=== PATIENT | female | born 1940 | race Caucasian/White ===

== ENCOUNTER 2024-12-06 14:15 | Inpatient (IN) | payer MEDICARE, SELFPAY ==
[2024-12-06] VITALS (8 sets, daily range): BP systolic 124–180; BP diastolic 64–75; PULSE 70–102; RESP 15–19; TEMP 36.7; O2SAT 96–98; BMI 32.9; BMI 32.6
--- NOTE | ~2024-12-06 | CT_ITS ---
CLINICAL HISTORY: Stroke Protocol CT head without contrast Comparison: None Findings: No acute hemorrhage. No extra-axial fluid collection. Prominence of the ventricles and extra-axial spaces due to atrophy of the brain parenchyma. No hydrocephalus, mass-effect or herniation. Patel-white differentiation is maintained. There is patchy hypoattenuation of the periventricular and deep white matter, which is most likely the sequela of moderate chronic small vessel ischemic disease. No acute orbital pathology. No acute soft tissue abnormality. No fracture. Complete opacification of the right maxillary sinus with osseous thickening and widening of the ostium may indicate a polyp, likely chronic. Retention cyst/polyp in the left maxillary sinus. Mucosal thickening in right anterior ethmoid air cells. Mild mucosal thickening with a trace amount of secretions in the right sphenoid sinus. The other visualized paranasal sinuses are predominantly clear. The mastoid air cells are clear. Impression: No acute intracranial findings. This document has been electronically signed by: Raquel Pascal MD on 12/06/2024 14:39:50
--- NOTE | ~2024-12-06 | MR_ITS ---
CLINICAL HISTORY: <OBR.31.1><OBR.31.1.1>?TIA vs CVA Pt presents with slurred speech </OBR.31.1.1><OB R.31.1.2> instability while walking </OBR.31.1.2><OBR.31.1.3> standing.</OBR.31.1.3></OBR.31.1> MR Brain without gadolinium Comparison: 12/06/2024 Findings: Multifocal right parietal punctate restricted diffusion. No intracranial mass or hemorrhage. No midline shift. No hydrocephalus. Vascular flow voids are intact. The orbits are normal. There is mucoperiosteal thickening in the right maxillary antrum with possible inspissated mucus. There is inspissated mucus in the left maxillary antrum. The mastoid air cells are clear. No focal bone lesion. IMPRESSION: Multifocal acute right parietal ischemia. This document has been electronically signed by: Adarsh Luevano MD on 12/07/2024 12:35:38
--- NOTE | ~2024-12-06 | CT_ITS ---
CLINICAL HISTORY: Stroke CTA of the head and neck with 3-D postprocessing Comparison: CT/SR - CT HEAD FOR STROKE - 12/06/24 14:23 EST Findings: Significant stenosis of the origin of the right internal carotid artery, 63%. Significant stenosis at proximal left internal carotid artery, measuring up to 54%. Retropharyngeal course of the carotid arteries. Intact vertebral arteries. The vertebral basilar system is patent. The cerebellar and posterior cerebral arteries are intact. The P1 segment of the left posterior cerebral artery is hypoplastic and the P2 segment is partially fed via the posterior communicating artery, a normal variant The intracranial internal carotid arteries are patent. There is severe calcified atherosclerotic disease of the carotid siphons bilaterally The middle/anterior cerebral arteries are intact. No aneurysm or abrupt cutoffs. No mass, midline shift, hydrocephalus, acute hemorrhage or abnormal contrast enhancement. The lung apices are clear. The soft tissues of the head and neck are unremarkable. Impression: Significant stenosis of the right internal carotid artery, 63%. Significant stenosis of the left internal carotid artery, 54%. No aneurysm or occlusion. This document has been electronically signed by: Raquel Pascal MD on 12/06/2024 16:34:08
--- NOTE | 2024-12-06 14:23 | ECG_ITS ---
Test Reason : STROKE Blood Pressure : */* mmHG Vent. Rate : 95 BPM Atrial Rate : 95 BPM P-R Int : 156 ms QRS Dur : 68 ms QT Int : 336 ms P-R-T Axes : 71 28 46 degrees QTcB Int : 422 ms Sinus rhythm with occasional Premature ventricular complexes Nonspecific ST abnormality Abnormal ECG No previous ECGs available Referred By: Bryan Pierce Electronically Signed By: AMISHA YOU
[2024-12-06 14:27] LABS: Glucose, Whole Blood 150 mg/dL (60-115)
[2024-12-06 14:45] LABS: Prothrombin Time Whole Bld POC 12.1 sec (11.1-13.5)
[2024-12-06 14:55] LABS: MANUAL DIFF FLAG NO
[2024-12-06 14:56] LABS: Basophils Percent Auto 0.5 % (0-2); Eosinophils Absolute Auto 0.1 X10*3/uL (0.0-0.4); Eosinophils Percent Auto 1.3 % (0-4); Hematocrit 37.9 % (37.0-47.0); Hemoglobin 12.7 g/dl (12.0-16.0); Imm Gran Abs Auto 0.02 X10*3/uL (0.00-0.03); Imm Gran Pct Auto 0.3 % (0.0-0.4); Lymphocytes Absolute Auto 1.7 X10*3/uL (1.2-4.9); Lymphocytes Percent Auto 20.8 % (20-40); Mean Corpuscular HGB Conc 33.5 g/dl (31.0-35.0); Mean Corpuscular Hemoglobin 30.9 pg (27.0-33.0); Mean Corpuscular Volume 92.2 fL (80.0-98.0); Mean Platelet Volume 8.9 fL (9.4-12.3); Monocytes Absolute Auto 0.4 X10*3/uL (0.1-1.2); Monocytes Percent Auto 4.7 % (2-11); Neutrophils Absolute Auto 5.8 x10*3/uL (2.0-8.3); Neutrophils Percent Auto 72.4 % (45-73); Platelet Count 237 X10*3/uL (160-400); Red Blood Count 4.11 X10*6/uL (4.20-5.50); White Blood Count 7.9 X10*3/uL (4.8-10.8)
[2024-12-06 15:01] LABS: Prothrombin Time 11.3 SEC (10.9-12.4)
[2024-12-06 15:04] LABS: Partial Thromboplastin Time 28.1 SEC (26.0-36.8)
[2024-12-06 15:05] LABS: Stroke Lab Use COMPLETE
[2024-12-06 15:15] LABS: Anion Gap 12 (12-20); Blood Urea Nitrogen 19 mg/dL (9-16); Calcium 8.9 mg/dL (8.4-10.2); Carbon Dioxide 23 mmol/L (22-29); Chloride 110 mmol/L (96-108); Cholesterol 160 mg/dL (<200); Creatinine Clr Calc Pharmacy 64.9; Estimated Glomerular Filt Rate > 60; Glucose Random 135 mg/dL (60-115); HDL Cholesterol 63 mg/dL (>40); LDL Cholesterol Calculated 78 mg/dL (<100); Potassium 3.8 mmol/L (3.3-5.1); Sodium 141 mmol/L (135-145); Triglycerides 95 mg/dL (<150)
[2024-12-06 15:24] LABS: Troponin-I High Sensitivity < 2.7 ng/L (<3.5-17.0)
--- NOTE | 2024-12-06 16:05 | ED_ITS ---
HPI - Neuro Symptoms/Deficit General Chief Complaint: Stroke Stated Complaint: STROKE LIKE, RIGHT SIDED FACE DROOP/SLURRED Time Seen by Provider: 12/06/24 14:24 Source: patient, family and EMS Mode of arrival: EMS Limitations: no limitations History of Present Illness ED Provider: DR. Pierce HPI Narrative: 84-year-old female brought in by ambulance for evaluation of possible stroke. Symptoms started about 2 hours before arrival when noted that the patient been having slurred speech and not making sense when talking, noticed also a right facial droop symptoms started about 2 hours before arrival on arrival to the ED patient is speaking fluently as per daughter that is her normal speech pattern no more slurred speech, and normal neuro exam. Patient is not taking anticoagulation Related Data Allergies Allergy/AdvReac Type Severity Reaction Status Date / Time No Known Allergies Allergy Verified 12/06/24 14:38 Review of Systems 2 Review of Systems: All other systems are reviewed and are negative Constitutional: Reports as per HPI and Reports no additional constitutional complaints Eyes: Reports as per HPI and Reports no additional eye complaints Reports system reviewed and no additional complaints, except as documented Cardiovascular: Reports as per HPI and Reports no additional cardiovascular complaints Respiratory: Reports as per HPI and Reports no additional respiratory complaints Gastrointestinal: Reports as per HPI and Reports no additional gastrointestinal complaints Genitourinary: Reports no additional female genitourinary complaints Musculoskeletal: Reports no additional musculoskeletal complaints Skin/Breast: Reports system reviewed and no additional complaints, except as docu Psychiatric: Reports no additional psychiatric complaints Endocrine: Reports no additional endocrine complaints Hematologic/Lymphatic: Reports no additional hematologic/lymphatic complaints Allergic/Immunologic: Reports no additional allergic/immunologic complaints Reports system reviewed and no additional complaints, except as documented and Reports Abnormal speech present [facility] Social History Social History Advance Directives: No Advance Directives Information Provided: No Do you have a plan to hurt others: No Plan Physical Exam 2 Vital Signs: Vital Signs: Last Vital Signs Temp 98.0 F 12/06/24 15:03 Pulse 87 12/06/24 15:03 Resp 16 12/06/24 15:03 BP 127/65 12/06/24 15:03 Pulse Ox 96 12/06/24 15:03 O2 Del Method Room Air 12/06/24 15:03 BMI result Body Mass Index 32.9 Vital signs have been reviewed and appear to be correct. Blood pressure elevated. Heart rate normal. Respiratory rate normal. Temperature normal. Oxygen saturation normal. Appearance: Alert. Oriented X3. No acute distress. Head: Normal external exam. Normocephalic. Atraumatic. No Burton signs noted. No raccoon eyes noted Eyes: PERRLA. EOMI. Conjunctiva and sclera normal. Eyelids normal. ENT: TM's Normal. Pharynx normal. Uvula midline. Moist mucous membranes. No trismus noted. No drooling noted. No muffled voice noted. Neck: Normal inspection. Neck supple. FROM. No adenopathy. Thyroid Normal. No meningeal signs. No neck mass noted. CVS: Normal heart rate and rhythm. Heart sound normal. No murmurs noted. Pulses normal throughout. Respiratory: No respiratory distress. Painless inspiration. Breath sounds normal. No wheezes/rales/rhonchi noted. Chest nontender. No accessory muscle usage noted or decreased air movement noted. Abdomen: Soft and nontender. Bowel sounds normal in all 4 quadrants. No distention noted. No organomegaly noted. No visible injury noted. Back: No CVA tenderness. Full range of motion noted. Skin: Skin warm and dry. Normal skin color. Normal skin turgor. No rashes/lesions/lacerations noted. Extremities: No lower extremity edema. Extremities exhibit normal range of motion. Extremities nontender. Neuro: Mental status: Normal attention, orientation, memory, and affect. Cranial nerves: Pupils are equal, round and reactive to light, EOMI, visual dent are fall, face is symmetric, facial sensations are normal. Motor examination normal muscle tone, strength to 4 extremities. DTR are +2, planter's are flexor. Sensory exam; normal coordination, no ataxia, gait stable. Cerebellar exam: [id number] and jjwj-[id number]-ivnf is normal. Extrapyramidal system: No tremors, no rigidity with normal facial expressions. Pronator drift not present Course Reevaluation(s) Reevaluation #1: Resolution of patient's neurological deficit, CT head showed no acute intracranial pathology CTA head and neck are still pending signed out to Dr. Schmitz just to follow-up Time: 16:19 Medical Decision Making Differential Diagnosis Differential Diagnoses: The differential diagnosis associated with the presentation includes (Ischemic CVA, hemorrhagic CVA, electrolyte derangement, hypo glycemia, severe anemia.) Admission/Observation Consideration of admission/observation: Escalation of care including admission/observation considered Consult Healthcare Provider Management of the patient was discussed with: Hospitalist (Dr. Knott) Lab Data MDM Lab Attestation statement: I reviewed the patient's lab results. 12/06/24 14:51 12/06/24 14:51 Labs: Lab Results 12/06/24 12/06/24 12/06/24 Range/Units 14:23 14:42 14:51 WBC 7.9 (4.8-10.8) X10*3/uL RBC 4.11 L (4.20-5.50) X10*6/uL Hgb 12.7 (12.0-16.0) g/dl Hct 37.9 (37.0-47.0) % MCV 92.2 (80.0-98.0) fL MCH 30.9 (27.0-33.0) pg MCHC 33.5 (31.0-35.0) g/dl RDW 13.0 (11.0-16.0) % Plt Count 237 (160-400) X10*3/uL MPV 8.9 L (9.4-12.3) fL Immature Gran % (Auto) 0.3 (0.0-0.4) % Neut % (Auto) 72.4 (45-73) % Lymph % (Auto) 20.8 (20-40) % [place] % (Auto) 4.7 (2-11) % Eos % (Auto) 1.3 (0-4) % Baso % (Auto) 0.5 (0-2) % Lymph # (Auto) 1.7 (1.2-4.9) X10*3/uL [place] # (Auto) 0.4 (0.1-1.2) X10*3/uL Eos # (Auto) 0.1 (0.0-0.4) X10*3/uL Baso # (Auto) 0.0 (0.0-0.2) X10*3/uL Abs Immat Gran (auto) 0.02 (0.00-0.03) X10*3/uL Absolute Neuts (auto) 5.8 (2.0-8.3) x10*3/uL Absolute Nucleated RBC 0.000 (0.0-0.012) X10*3/uL Nucleated RBC % (auto) 0.0 (0.0-0.2) /100WBC PT 11.3 (10.9-12.4) SEC Whole Blood PT 12.1 (11.1-13.5) sec INR 1.0 (0.9-1.1) Whole Blood INR 1.0 (0.9-1.1) APTT 28.1 (26.0-36.8) SEC Sodium 141 (135-145) mmol/L Potassium 3.8 (3.3-5.1) mmol/L Chloride 110 H (96-108) mmol/L Carbon Dioxide 23 (22-29) mmol/L Anion Gap 12 (12-20) BUN 19 H (9-16) mg/dL Creatinine 0.83 (0.5-1.4) mg/dL Estim Creat Clear Calc 64.9 Estimated GFR > 60 POC Glucose 150 H (60-115) mg/dL Random Glucose 135 H (60-115) mg/dL Calcium 8.9 (8.4-10.2) mg/dL Troponin I High Sens < 2.7 (<3.5-17.0) ng/L Triglycerides 95 (<150) mg/dL Cholesterol 160 (<200) mg/dL LDL Cholesterol, Calc 78 (<100) mg/dL HDL Cholesterol 63 (>40) mg/dL Independent Interpretation I performed an independent interpretation of an: CT Scan (Head/head and neck CTA: No acute intracranial findings.) Radiology Impression Discussion of test interpretation with radiology: I have reviewed the radiologist's reading. NIH Stroke Scale Internal: Initial- Upon Arrival Level of Consciousness: Alert Level of Consciousness Questions: Answers both questions correctly Level of Consciousness Commands: Performs both tasks correctly Best Gaze: Normal Visual: No visual loss Facial Palsy: Normal Motor Arm (Right): No drift Motor Arm (Left): No drift Motor Leg (Right): No drift Motor Leg (Left): No drift Limb Ataxia: Absent Sensory: Normal Best Language: No aphasia Dysarthia: Normal Extinction and Inattention: No abnormality Score: 0 Discharge Plan Discharge Clinical Impression: Brain TIA Patient Disposition: Admitted As Inpatient Print Language: Kiswahili
[2024-12-06] MEDS: iohexoL 350 MG/ML 100 ML INFUS..BTL IV (16:12)
[2024-12-06] MEDS: Aspirin 325 MG TABLET PO (16:32)
--- NOTE | 2024-12-06 17:26 | PM.IMHP ---
History of Present Illness Date of Service: 12/06/24 Attending physician on admission: Lorene Starkey Chief Complaint: Difficulty speaking Pt is an 84-year-old female with a PMH significant for?HTN, HLD, hypothyroidism, and hx of CVA with residual right eye blindness who presents to the ED for evaluation of sudden onset difficulty speaking and left-sided weakness since this afternoon. Pt reports was in her normal state of health until 14:00 when she noticed that she was having difficulty grasping items with her left hand and found that she was speaking ?gibberish?. Possibly also was experiencing difficulties with depth perception. Family is at bedside and state pt was slurring her words and speaking incoherently which prompted called EMS. Symptoms lasted for approximately 30-60 minutes before improving. Currently pt reports is at or near baseline with left upper extremity, though family notes her speaking is not quite back to baseline. Denies headache, lightheadedness, dizziness. No facial droop noted. Denies difficulty breathing or shortness a breath. No chest pain/pressure, palpitations. Denies fever, chills, nausea, vomiting, abdominal pain. Of note, pt pt and apparently fell at home a few months ago shortly after Thanksgiving. Neither sought medical treatment or evaluation. Since that time pt has been chronically in a wheelchair. Denies any musculoskeletal pain. In the ED pt was hypertensive up to 159/75, vitals otherwise stable. Labs were grossly unremarkable and around baseline for pt. No leukocytosis. Stable H&H. No significant electrolyte abnormalities. Renal function WNL. Lipid panel WNL. Troponin negative. CT?of head negative for acute intracranial abnormalities. CTA of head and neck showed 63% stenosis of right internal carotid artery and 54% stenosis of left internal carotid artery. EKG demonstrated sinus rhythm with PACs. Pt was treated with aspirin. Pt will be admitted to the hospital for treatment and further evaluation of dysarthria and left-sided weakness concerning for TIA versus CVA. Review of Systems Review of Systems: Negative except for that which is stated in the [facility] Medical History (Updated 12/06/24 @ 17:59 by ASIYA Farrell) Hypothyroidism HLD (hyperlipidemia) HTN (hypertension) Blindness of right eye CVA (cerebral vascular accident) Social History Advance Directives: No Advance Directives Information Provided: No Do you have a plan to hurt others: No Plan Meds Allergies Allergy/AdvReac Type Severity Reaction Status Date / Time No Known Allergies Allergy Verified 12/06/24 14:38 Home Medications ?Medication ?Instructions ?Recorded ?Confirmed ?Last Taken ?Type amlodipine 5 mg tablet 5 mg PO DAILY 12/06/24 Unknown History atorvastatin 40 mg tablet 40 mg PO DAILY 12/06/24 Unknown History levothyroxine 112 mcg tablet 112 mcg PO DAILY 12/06/24 Unknown History valsartan 160 mg tablet 160 mg PO BID 12/06/24 Unknown History Physical Exam Vital Signs and Narrative: Vital Signs: Last Vital Signs Temp 98.0 F 12/06/24 15:03 Pulse 92 12/06/24 16:33 Resp 19 12/06/24 16:33 BP 159/75 H 12/06/24 16:33 Pulse Ox 98 12/06/24 16:33 O2 Del Method Room Air 12/06/24 16:33 BMI result Body Mass Index 32.9 Constitutional: Alert, in no acute distress. Mental Status: Oriented to person, place and time. Eyes: Pupils are equal, round, and reactive to light. Ear, Nose, and Throat: Oropharynx clear, mucous membranes moist. Ears and nose without deformities. Trachea midline. Respiratory: Clear to auscultation bilaterally. No wheezing, rales, or rhonchi. Cardiovascular: Regularly irregular rhythm. +murmur. Gastrointestinal: Abdomen soft, non-tender, non-distended. Normal bowel sounds. Neurologic: Cranial nerves II-XII are grossly intact bilaterally. No focal neurological deficits. Moves all extremities spontaneously. Left eyefield appear full. No facial droop. Strength of upper and lower extremities appears intact and symmetric bilaterally. Sensation to light touch intact of face, upper extremities, and lower extremities. Negative pronator drift. Possible slight impairment to fluency of speech. Skin: Warm, dry. Extremities: No edema. Psychiatric: Normal mood and affect. Results Labs 12/06/24 14:51 12/06/24 14:51 Labs: Laboratory Results - last 24 hr 12/06/24 12/06/24 12/06/24 14:23 14:42 14:51 MCV 92.2 MCH 30.9 MCHC 33.5 RDW 13.0 Plt Count 237 MPV 8.9 L Immature Gran % (Auto) 0.3 Neut % (Auto) 72.4 Lymph % (Auto) 20.8 [place] % (Auto) 4.7 Eos % (Auto) 1.3 Baso % (Auto) 0.5 Lymph # (Auto) 1.7 [place] # (Auto) 0.4 Eos # (Auto) 0.1 Baso # (Auto) 0.0 Abs Immat Gran (auto) 0.02 Absolute Neuts (auto) 5.8 Absolute Nucleated RBC 0.000 Nucleated RBC % (auto) 0.0 PT 11.3 Whole Blood PT 12.1 INR 1.0 Whole Blood INR 1.0 APTT 28.1 Anion Gap 12 Estim Creat Clear Calc 64.9 Estimated GFR > 60 POC Glucose 150 H Random Glucose 135 H Calcium 8.9 Troponin I High Sens < 2.7 Triglycerides 95 Cholesterol 160 LDL Cholesterol, Calc 78 HDL Cholesterol 63 Assessment and Plan (1) Dysarthria: Status: Acute Plan Pt is an 84-year-old female with a PMH significant for?HTN, HLD, hypothyroidism, and hx of CVA with residual right eye blindness who presents to the ED for evaluation of sudden onset difficulty speaking and left-sided weakness since this afternoon. Pt will be admitted to the hospital for treatment and further evaluation of dysarthria and left-sided weakness concerning for TIA versus CVA. Dysarthria Pt noted by family to be slurring words, speaking nonsensically for 30-60 minutes this afternoon Pt reports difficulty grasping objects with left hand, poor depth perception Family report pt's speech still not fully back to baseline CT of head negative for acute intracranial abnormality CTA of head neck showing significant internal carotid artery stenosis bilaterally Concerning for TIA versus CVA Will get MRI of head/brain Echocardiogram with bubble study Continue statin Will start on aspirin 81 mg daily Lipid profile WNL PT/OT and speech evaluation Neurology consult Monitor on telemetry Generalized weakness Pt has been wheelchair-bound since fall at home around Thanksgiving Has not sought evaluation or treatment for incident Currently denies any acute musculoskeletal pain PT/OT evaluation as above HTN Hold amlodipine, valsartan for now to allow for permissive hypertension Hypothyroidism Continue levothyroxine Full Code Attending:?Dr. Starkey DVT Prophylaxis: Lovenox Pt will require a hospitalization of at least two nights for treatment of dysarthria and left-sided weakness concerning for TIA versus CVA. Pt will require hospital level care for close cardiac monitoring, additional workup including MRI and echocardiogram, and PT/OT and speech evaluation. Quality Stroke Does the patient have a stroke diagnosis?: No Reason for No Anti-thrombotic by Day Two: Contraindicated (Pt's symptoms significantly improved, near to baseline) VTE Prior VTE?: No VTE Risk Level:: Medical - moderate - high VTE Device Contraindication: Treatment Not Indicated VTE Drug Contraindication: N/A - Med Ordered
[2024-12-06 18:15] LABS: Estimated Average Glucose 114 mg/dL; Hemoglobin A1C 125.4988 umol/L; Hemoglobin A1c % 5.6 % (<6.0); Total Hemoglobin (HGBA1C) 3348.0669 umol/L
[2024-12-06] MEDS: Enoxaparin Sodium 40 MG/0.4 ML SYRINGE SUBCUT (18:35)
--- NOTE | 2024-12-06 18:38 | PHA.MEDREC ---
Pharmacy Consult ? Medication Reconciliation Pharmacy has completed the medication reconciliation.
[2024-12-06] MEDS: Atorvastatin Calcium 40 MG TABLET PO (21:14)
[2024-12-06 21:32] LABS: Glucose, Whole Blood 117 mg/dL (60-115)
[2024-12-06] MEDS: 0.9 % Sodium Chloride Flush 3 ML SYRINGE IVFLUSH (23:15)
[2024-12-07 03:41] VITALS: BP 124/60; PULSE 62; RESP 16; TEMP 36.2; O2SAT 96
[2024-12-07] MEDS: Levothyroxine Sodium 112 MCG TABLET PO (05:11)
[2024-12-07 07:44] VITALS: BP 137/64; PULSE 69; RESP 18; TEMP 36.6; O2SAT 97
[2024-12-07] MEDS: Atorvastatin Calcium 40 MG TABLET PO (07:59)
[2024-12-07] MEDS: Multivitamin TABLET 1 TAB PO (07:59)
[2024-12-07] MEDS: Aspirin Enteric Coated 81 MG TABLET.DR PO (07:59)
[2024-12-07] MEDS: 0.9 % Sodium Chloride Flush 3 ML SYRINGE IVFLUSH ×2 (08:00→16:43)
[2024-12-07 11:30] VITALS: BP 127/58; PULSE 68; RESP 18; TEMP 36.4; O2SAT 100
--- NOTE | 2024-12-07 11:48 | MHC.CM.PN ---
PT REPORTS SHE LIVES WITH HER AND HAS A [employer]ET[employer] SCIENTIST THAT COMES IN Q 2 WEEKS SHE IS USES A WHEEL CHAIR FOR MOBILITY AND CAN TRANSFER INDEPENDENTLY, SHE ALSO HAS A TOILET RISER AND TUB [employer] FOR DME PT STATES SHE HAS A HCP, COPY REQUESTED PCP: BRENDA PALMER IMM DELIVERED DCP: TBD PENDING PT AND OT EVALS HOME WITH RESUMPTION OF SERVICES VS WITH NEW [facility] TO TRANSPORT PT STATES SHE HAS HAD [facility] IN THE PAST AND THAT WOULD BE HER PREFERRED AGENCY REFERRAL PALCED
--- NOTE | 2024-12-07 12:54 | PC.NURSE ---
MRI results available , DR Starkey notified
[2024-12-07 14:54] VITALS: BP 131/59; PULSE 68; RESP 18; TEMP 36.4; O2SAT 98
--- NOTE | 2024-12-07 16:09 | P.PNIM_ITS ---
Subjective Subjective Date of Service: 12/07/24 Interval History: L hand still a little weak feels her speech has improved no swallowing difficulty Review of Systems Review of Systems: Yes all other systems are reviewed and are negative Physical Exam 2 Vital Signs: Vital Signs: Last Vital Signs Temp 97.6 F 12/07/24 14:54 Pulse 68 12/07/24 14:54 Resp 18 12/07/24 14:54 BP 131/59 L 12/07/24 14:54 Pulse Ox 98 12/07/24 14:54 O2 Del Method Room Air 12/07/24 14:54 BMI result Body Mass Index 32.6 Gen: in no acute distress HEENT: sclera anicteric, moist mucus membranes Neck: supple Lungs: clear to auscultation bilaterally Heart: regular rate and rhythm, no murmurs Abd: soft, non-tender, non-distended Ext: no edema Skin: warm/well-perfused Neuro: alert and oriented x3, slightly weak L hand facilitator, very mild speech difficulty Psych: appropriate affect Objective Data Active Medications Acetaminophen (Acetaminophen 325 Mg Tablet) 650 mg PO Q6H PRN PRN Reason: Pain, Mild 1-3,fever,headache Aspirin (Aspirin Enteric Coated 81 Mg Tablet.) 81 mg PO DAILY [facility] Last Admin: 12/07/24 07:59 Dose: 81 mg Documented By: SOCORRO Atorvastatin Calcium (Atorvastatin Calcium 40 Mg Tablet) 40 mg PO DAILY [facility] Last Admin: 12/07/24 07:59 Dose: 40 mg Documented By: SOCORRO Benzonatate (Benzonatate 100 Mg Capsule) 100 mg PO TID PRN PRN Reason: Cough Calcium Carbonate (Calcium Carbonate 750 Mg Tab.Chew) 750 mg PO Q4H PRN PRN Reason: Heartburn Enoxaparin Sodium (Enoxaparin Sodium 40 Mg/0.4 Ml Syringe) 40 mg SUBCUT Q24H [facility] Last Admin: 12/06/24 18:35 Dose: 40 mg Documented By: AILEEN Levothyroxine Sodium (Levothyroxine Sodium 112 Mcg Tablet) 112 mcg PO DAILY@0600 [facility] Last Admin: 12/07/24 05:11 Dose: 112 mcg Documented By: EMI Magnesium Hydroxide (Milk Of Magnesia 30 Ml Oral.Susp) 30 ml PO DAILY PRN PRN Reason: Constipation Melatonin (Melatonin 3 Mg Tablet) 6 mg PO BEDTIME PRN PRN Reason: Insomnia Multivitamins/Vitamin C (Multivitamin Tablet) 1 tab PO DAILY [facility] Last Admin: 12/07/24 07:59 Dose: 1 tab Documented By: SOCORRO Ondansetron HCl (Ondansetron Hcl 4 Mg/2 Ml Vial) 4 mg IVPUSH Q8H PRN PRN Reason: Nausea and Vomiting Sodium Chloride (0.9 % Sodium Chloride Flush 3 Ml Syringe) 3 ml IVFLUSH QSHIFT [facility] Last Admin: 12/07/24 08:00 Dose: 3 ml Documented By: SOCORRO Labs 12/06/24 14:51 12/06/24 14:51 Labs: Laboratory Results - last 24 hr 12/06/24 12/06/24 14:51 21:28 POC Glucose 117 H Estimat Average Glucose 114 Hemoglobin A1c % 5.6 MRI brain 12/07 Multifocal acute right parietal ischemia. Assessment and Plan (1) Acute CVA (cerebrovascular accident): Status: Acute Plan d2 for 84yo F with HTN, HLD, hypothyroidism, hx CVA 15yr ago with R eye blindness presented after sudden-onset dysarthria + LUE weakness acute CVA carotid stenosis - ASA, statin, Neuro consult, TTE, PT, OT, [employer] - continue telemetry montioring; atrial tachycardia identified but this is not a thrombotic risk HTN - hold amlodipine + valsartan to allow permissive hypertension hypothyroidism - continue LT4 VTE prophylaxis - enoxaparin dispo - TBD In my clinical judgment, the patient requires continued inpatient hospitalization for the following reasons: acute CVA Total time managing care of this patient today: 35 minutes. Quality Stroke Does the patient have a stroke diagnosis?: No Reason for No Anti-thrombotic by Day Two: Contraindicated (Pt's symptoms significantly improved, near to baseline) VTE Prior VTE?: No VTE Risk Level:: Medical - moderate - high VTE Device Contraindication: Treatment Not Indicated VTE Drug Contraindication: N/A - Med Ordered
[2024-12-07] MEDS: Enoxaparin Sodium 40 MG/0.4 ML SYRINGE SUBCUT (16:44)
[2024-12-07 20:00] VITALS: BP 103/51; PULSE 70; RESP 20; TEMP 36.8; O2SAT 99
[2024-12-08] VITALS (8 sets, daily range): BP systolic 111–141; BP diastolic 55–68; PULSE 60–75; RESP 16–20; TEMP 36.4–37; O2SAT 95–99
[2024-12-08] MEDS: Levothyroxine Sodium 112 MCG TABLET PO (06:20)
--- NOTE | 2024-12-08 07:00 | CA_ITS ---
Transthoracic Echocardiogram Patient (Last, First, Middle): Marybeth Mckinley A Gender: Female Date of : 1940 Age: 84 Procedure Date: 12/08/2024 Procedure Type: Transthoracic Echocardiogram Location: [facility] [place] Height: 175.26 cm Weight: 99.79 kg BSA: 2.15 m2 Heart Rate: 62 bpm BP: 111 / 55 mmHg Plastic Sheeting Cutter: MIKI Referring MD: Andre BRADEN Symptoms: ?TIA vs CVA Study Quality: Adequate w/Contrast ECG Rhythm: Sinus Conclusions: - Normal left ventricular cavity size. There is mildly increased left ventricular wall thickness. The left ventricular systolic function is hyperdynamic. The visually estimated ejection fraction is >70%. - Normal right ventricular cavity size and systolic function. - There is moderate to severe aortic valve stenosis. DI 0.23. - The aortic valve area is 0.96 cm2. Findings Procedure Information Contrast agent, definity, is being given per protocol without apparent complications. Left Ventricle Normal left ventricular cavity size. There is mildly increased left ventricular wall thickness. The left ventricular systolic function is hyperdynamic. The visually estimated ejection fraction is >70%. There is no evidence of regional wall motion abnormalities. Abnormal diastolic function is noted. Spectral Doppler is indicative of an impaired relaxation filling pattern. E/E prime ratio is between 8 and 15 consistent with indeterminate filling pressures. Right Ventricle Normal right ventricular cavity size and systolic function. Atria The left atrium is normal in size. The right atrium is normal in size. Aortic Valve There is moderate calcification of the aortic valve. There is moderate to severe aortic valve stenosis. The peak aortic velocity is 3.48 m/s with a calculated peak gradient of 48 mmHg. The mean gradient is 29 mmHg. The aortic valve area is 0.96 cm2. There is no aortic valve regurgitation. Mitral Valve Likely normal mitral valve structure and function. There is no mitral valve regurgitation. There is no mitral valve stenosis. Pulmonic Valve The pulmonic valve is likely normal. Tricuspid Valve Normal tricuspid valve structure. There is trace tricuspid valve regurgitation. Normal right atrial pressure. There is no evidence of pulmonary hypertension. Great Vessels All visible segments of the aorta are normal in size. Venous The inferior vena cava is normal in size and collapses greater than 50% with inspiration. Pericardium/Pleural There is no evidence of pericardial effusion. Prior Study Comparison No prior study available for comparison. Measurements 2D Linear Measurements IVSd: 1.08 0.6-0.9/0.6-1.0 cm LVIDd: 3.17 3.9-5.3/4.2-5.9 cm LVIDd Index: 1.47 2.4-3.2/2.2-3.1 cm/m2 LVIDs: 2.16 2.0-3.6 cm LVPWd: 1.14 0.7-1.1 cm LA Diam: 4.00 2.7-3.8/3.0-4.0 cm LAIDs Index: 1.86 1.5-2.3 cm/m2 LV Mass: 129.73 67-162/88-224 g LV Mass Index: 60.34 43-95/49-115 g/m2 LVOT Diam: 1.70 3.0+(-)1.3 cm 2D Systolic Function EF 4C: 71.60 >55% EF 2C: 72.40 >55% EF BiP: 72.40 >55% Mitral Valve MV Pk E: 0.99 MV PK A: 1.25 MV Decel Time: 264.00 E/A: 0.80 E'Lateral: 7.51 E'Medial: 6.09 E/E' Med: 16.20 E/E' Lat: 13.10 PHT: 77.00 MVA PHT: 2.86 Decel [place]: 3.74 Aortic Valve AoV Pk Aime: 3.48 AoV Mn Aime: 2.52 AoV VTI: 0.83 AoV Pk Grad: 48.00 Aov Mn Grad: 29.00 TANISHA Cont.VTI: 0.96 LVOT LVOT Pk Aime: 1.53 LVOT Mn Aime: 1.01 LVOT VTI: 0.35 LVOT Pk Grad: 9.00 LVOT Mn Grad: 5.00 LVOT Diam: 1.70 LVOT Area: 2.27 Diastolic Function MV Pk E: 0.99 MV Pk A: 1.25 E/A: 0.80 E'Medial: 6.09 E/E' Med: 16.20 E' Laterial: 7.51 E/E' Lat: 13.10 Right Ventricle TAPSE (mm): 20.40 TVS' Aime: 9.03 Tricuspid Valve TR Pk Aime: 2.18 TR Pk Grad: 19.00 RA Press: 3.00 RVSP: 22.00 Great Vessels Aorta Sinus of Valsalva: 3.10 2.0-3.5 cm Ao Asc: 3.10 2.1-3.4 cm Pulmonary Valve PV Pk Aime: 1.21 Peak PV Grad: 6.00 Updated in Other Vendor System with Status of Final Wu Chau MD electronically signed on 12/08/2024 6:23:58 PM with status of Final
--- NOTE | 2024-12-08 08:27 | PM.NEUROCN ---
History of Present Illness Data of Consult Service Date: 12/08/24 Primary Care Provider: Selena Farmer MD [facility] Reason for consult: Stroke 84 years old woman, right-handed, came to hospital with new onset of difficulty speaking a left-sided weakness that started about a day before she came to hospital. There was no associated headache nausea or vomiting. Now she was feeling better. There was no chest pain shortness of breath palpitation. There was no recent cold or flu-like illness. She was not mentally confused with it. She has been drinking couple of glasses of wine at night for probably years. Review of Systems Review of Systems: As per HPI [facility] Past Medical History Medical History (Updated 12/07/24 @ 16:10 by Lorene Starkey MD) Hypothyroidism HLD (hyperlipidemia) HTN (hypertension) Blindness of right eye CVA (cerebral vascular accident) Social History Social History Household Members: Spouse Housing: House Do you presently have visiting nurse or other home services: No Patient Tobacco Use Status: Never used Tobacco e-Cigarette/Vaping Use: Never Used Use of substances other than those prescribed or required for medical reasons: No Currently Displaying Signs/Symptoms of Drug Intoxication Withdrawal: No Any prior treatment program specific to substance use: No Have you been hit, kicked, punched, or otherwise hurt by someone within the past year? If so, by whom?: No Do you feel safe in your current relationship?: Yes Is there a partner from a previous relationship who is making you feel unsafe now?: No Are you made to feel afraid or neglected: No Advance Directives: No Advance Directives Information Provided: No Do you have a plan to hurt others: No Plan Recently lost weight without trying: No How much weight loss: Not applicable Eating poorly because of decreased appetite: No Nutrition screen score: 0 Nutrition Risks: No Nutritional Risk Patient : No : No Poor oral hygiene: No service: No Meds Allergies Allergy/AdvReac Type Severity Reaction Status Date / Time No Known Allergies Allergy Verified 12/06/24 14:38 Active Medications: Current Medications Acetaminophen (Acetaminophen 325 Mg Tablet) 650 mg PO Q6H PRN PRN Reason: Pain, Mild 1-3,fever,headache Aspirin (Aspirin Enteric Coated 81 Mg Tablet.) 81 mg PO DAILY [facility] Last Admin: 12/07/24 07:59 Dose: 81 mg Atorvastatin Calcium (Atorvastatin Calcium 40 Mg Tablet) 40 mg PO DAILY [facility] Last Admin: 12/07/24 07:59 Dose: 40 mg Benzonatate (Benzonatate 100 Mg Capsule) 100 mg PO TID PRN PRN Reason: Cough Calcium Carbonate (Calcium Carbonate 750 Mg Tab.Chew) 750 mg PO Q4H PRN PRN Reason: Heartburn Enoxaparin Sodium (Enoxaparin Sodium 40 Mg/0.4 Ml Syringe) 40 mg SUBCUT Q24H [facility] Last Admin: 12/07/24 16:44 Dose: 40 mg Levothyroxine Sodium (Levothyroxine Sodium 112 Mcg Tablet) 112 mcg PO DAILY@0600 [facility] Last Admin: 12/08/24 06:20 Dose: 112 mcg Magnesium Hydroxide (Milk Of Magnesia 30 Ml Oral.Susp) 30 ml PO DAILY PRN PRN Reason: Constipation Melatonin (Melatonin 3 Mg Tablet) 6 mg PO BEDTIME PRN PRN Reason: Insomnia Multivitamins/Vitamin C (Multivitamin Tablet) 1 tab PO DAILY [facility] Last Admin: 12/07/24 07:59 Dose: 1 tab Ondansetron HCl (Ondansetron Hcl 4 Mg/2 Ml Vial) 4 mg IVPUSH Q8H PRN PRN Reason: Nausea and Vomiting Sodium Chloride (0.9 % Sodium Chloride Flush 3 Ml Syringe) 3 ml IVFLUSH QSHIFT [facility] Last Admin: 12/08/24 01:07 Dose: Not Given Home Medications ?Medication ?Instructions ?Recorded ?Confirmed ?Last Taken ?Type amlodipine 5 mg tablet 5 mg PO DAILY 12/06/24 12/06/24 12/05/24 History atorvastatin 40 mg tablet 40 mg PO DAILY 12/06/24 12/06/24 12/05/24 History levothyroxine 112 mcg tablet 112 mcg PO DAILY@0600 12/06/24 12/06/24 12/05/24 History multivitamin 1 tab PO DAILY 12/06/24 12/06/24 12/05/24 History valsartan 160 mg tablet 320 mg PO DAILY 12/06/24 12/06/24 12/05/24 History Physical Exam Vital Signs: Vital Signs: Last Vital Signs Temp 97.5 F 12/08/24 07:19 Pulse 60 12/08/24 07:19 Resp 16 12/08/24 07:19 BP 114/61 12/08/24 07:19 Pulse Ox 96 12/08/24 07:19 O2 Del Method Room Air 12/08/24 07:19 BMI result Body Mass Index 32.6 Neuro: Other: she is alert and awake with normal spontaneity of speech fluency comprehension and affect. There is minimal left-sided facial flatness. left arm strength is slightly less than right. Mild [id number] ataxia is noted bilaterally. There was no obvious leg weakness. Speech is okay. Visual dent are intact. Extraocular muscles were intact. Results Labs 12/06/24 14:51 12/06/24 14:51 Labs: Noncontrast head CT revealed moderately severe diffuse cerebral and little bit more cerebellar atrophy with moderate microvascular ischemic changes. CTA of brain revealed moderate bilateral internal carotid artery extracranial stenosis. MRI of brain revealed a patchy area of mild right parietal mostly cortical restricted diffusion signal. FLAIR sequence revealed similar chronic microvascular ischemic changes. EKG revealed sinus rhythm. Assessment and Plan (1) Acute CVA (cerebrovascular accident): Status: Acute 84 years old woman with what looks like in embolic right parietal patchy infarct with minimal symptoms from it at this point. My recommendations are to put her on dual anti-platelet therapy aspirin 81 mg +clopidogrel 75 mg, statin, and blood pressure management. Carotid disease is not significant to consider surgical treatment. Medical management is recommended. He should quit alcohol drinking as her brain is already significantly affected partly from degenerative process and partly also from exposure to alcohol. Procedures Date of Service Date of Service: 12/08/24
[2024-12-08] MEDS: Atorvastatin Calcium 40 MG TABLET PO (09:34)
[2024-12-08] MEDS: Multivitamin TABLET 1 TAB PO (09:34)
[2024-12-08] MEDS: Aspirin Enteric Coated 81 MG TABLET.DR PO (09:34)
[2024-12-08] MEDS: 0.9 % Sodium Chloride Flush 3 ML SYRINGE IVFLUSH ×3 (09:35→19:57)
--- NOTE | 2024-12-08 10:12 | MHC.STROKE ---
Met with patient in room 453. Pt awake, alert and answering questions appropriately. Pt sitting up in chair. Stroke Education provided to patient. Stroke pamphlet given, all questions answered. Risk factors discussed including diet, medications, and activity. Educational pictures provided for greater understanding. Pt pleasant and open to education provided. Will continue to assist as needed.
[2024-12-08] MEDS: Clopidogrel Bisulfate 75 MG TABLET PO (12:17)
--- NOTE | 2024-12-08 14:56 | HO.PM.IMPN ---
Subjective Subjective Date of Service: 12/08/24 Interval History: L hand weakness improved still having some minor speech difficulty with more complex sentences Review of Systems Review of Systems: Yes all other systems are reviewed and are negative Physical Exam Vital Signs: Vital Signs: Last Vital Signs Temp 97.9 F 12/08/24 11:36 Pulse 70 12/08/24 11:36 Resp 16 12/08/24 11:36 BP 127/60 12/08/24 11:36 Pulse Ox 97 12/08/24 11:36 O2 Del Method Room Air 12/08/24 11:36 BMI result Body Mass Index 32.6 Gen: in no acute distress HEENT: sclera anicteric, moist mucus membranes Neck: supple Lungs: clear to auscultation bilaterally Heart: regular rate and rhythm, no murmurs Abd: soft, non-tender, non-distended Ext: no edema Skin: warm/well-perfused Neuro: alert and oriented x3, 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, very mild speech difficulty Psych: appropriate affect Objective Data Active Medications Acetaminophen (Acetaminophen 325 Mg Tablet) 650 mg PO Q6H PRN PRN Reason: Pain, Mild 1-3,fever,headache Aspirin (Aspirin Enteric Coated 81 Mg Tablet.) 81 mg PO DAILY [facility] Last Admin: 12/08/24 09:34 Dose: 81 mg Documented By: ERICA Atorvastatin Calcium (Atorvastatin Calcium 40 Mg Tablet) 40 mg PO DAILY [facility] Last Admin: 12/08/24 09:34 Dose: 40 mg Documented By: ERICA Benzonatate (Benzonatate 100 Mg Capsule) 100 mg PO TID PRN PRN Reason: Cough Calcium Carbonate (Calcium Carbonate 750 Mg Tab.Chew) 750 mg PO Q4H PRN PRN Reason: Heartburn Clopidogrel Bisulfate (Clopidogrel Bisulfate 75 Mg Tablet) 75 mg PO DAILY [facility] Last Admin: 12/08/24 12:17 Dose: 75 mg Documented By: ERICA Enoxaparin Sodium (Enoxaparin Sodium 40 Mg/0.4 Ml Syringe) 40 mg SUBCUT Q24H [facility] Last Admin: 12/07/24 16:44 Dose: 40 mg Documented By: SOCORRO Levothyroxine Sodium (Levothyroxine Sodium 112 Mcg Tablet) 112 mcg PO DAILY@0600 [facility] Last Admin: 12/08/24 06:20 Dose: 112 mcg Documented By: WINSTON Magnesium Hydroxide (Milk Of Magnesia 30 Ml Oral.Susp) 30 ml PO DAILY PRN PRN Reason: Constipation Melatonin (Melatonin 3 Mg Tablet) 6 mg PO BEDTIME PRN PRN Reason: Insomnia Multivitamins/Vitamin C (Multivitamin Tablet) 1 tab PO DAILY [facility] Last Admin: 12/08/24 09:34 Dose: 1 tab Documented By: ERICA Ondansetron HCl (Ondansetron Hcl 4 Mg/2 Ml Vial) 4 mg IVPUSH Q8H PRN PRN Reason: Nausea and Vomiting Sodium Chloride (0.9 % Sodium Chloride Flush 3 Ml Syringe) 3 ml IVFLUSH QSHIFT [facility] Last Admin: 12/08/24 09:35 Dose: 3 ml Documented By: ERICA Labs 12/06/24 14:51 12/06/24 14:51 Assessment and Plan (1) Acute CVA (cerebrovascular accident): Status: Acute Plan d3 for 84yo F with HTN, HLD, hypothyroidism, hx CVA 15yr ago with R eye blindness presented after sudden-onset dysarthria + LUE weakness acute CVA carotid stenosis - Neurology consulted: give DAPT with ASA + clopidogrel; carotid stenosis not severe enough to warrant surgery - continue statin - TTE pending - on telemetry, atrial tachycardia identified but this is not a thrombotic risk - SET UP WORKER evaluation - PT and OT evaluations done; recommend AIR HTN - held amlodipine + valsartan to allow permissive hypertension hypothyroidism - continue LT4 VTE prophylaxis - enoxaparin dispo - AIR In my clinical judgment, the patient requires continued inpatient hospitalization for the following reasons: AIR placement for acute CVA Total time managing care of this patient today: 35 minutes. Quality Stroke Does the patient have a stroke diagnosis?: No Reason for No Anti-thrombotic by Day Two: Contraindicated (Pt's symptoms significantly improved, near to baseline) VTE Prior VTE?: No VTE Risk Level:: Medical - moderate - high VTE Device Contraindication: Treatment Not Indicated VTE Drug Contraindication: N/A - Med Ordered
--- NOTE | 2024-12-08 14:59 | MHC.SP.ADU ---
Referring provider: Andre Fox Reason for Referral: Speech Language Cognition Evaluation Type of Treatment: 41408 Standardized Cognitive Performance Testing, per hour Date of Plan of Treatment: 12/06/24 Onset of Symptoms/Illness: 12/06/24 Date Treatment Started: 12/08/24 Medical Diagnosis: Cognitive Communication Disorder s/p CVA Primary Speech Language Diagnosis: R41.841 Cognitive communication disorder Secondary Speech Language Diagnosis: History MD admit note '84 y/o woman, right-handed, came to hospital with new onset of difficulty speaking a left-sided weakness that started about a day before she came to hospital. There was no associated headache nausea or vomiting. Now she was feeling better. There was no chest pain shortness of breath palpitation. There was no recent cold or flu-like illness. She was not mentally confused. Medical History: Other: Hypothyroidism HLD (hyperlipidemia) HTN (hypertension) Blindness of right eye CVA (cerebral vascular accident) Recent Hospitalizations: No Respiratory Needs: Room Air Patient Orientation: Person, Place Only Social History: Assistive Devices in use: Glasses/Contacts Comment: Pt wears glasses for reading, she did not have glasses during evaluation. Past Speech Language Therapy: Pt stated she had a stroke 16 years ago but only ended up with R sided eye blindness, no other complications. Other Therapies Seen in Current Calendar Year: None Swallowing History: Dysphagia Specific: Within Functional Limits Comments: Pre-eval Risk for Aspiration: Reduced Cognition Pre-evaluation Dietary Consistencies: Regular Pre-eval Liquid Intake: Thin Pre-eval Medication Intake: Reported Speech, Language, Cognition difficulties: Understanding Attention Memory Cognition Problem Solving Comments: Pt presents with mild dysarthria of connected speech, which is her baseline per pt, her daughter and pt spouse. Receptive comprehension WFL for word discrimination, simple commands and concrete information. Pt struggles with comprehending more complex ideational material as she perseverates on details vs. perceives the 'gestalt' ('big picture'). Expressive communication WNL for simple, routine and pragmatic communication exchanges. Pt exhibits moderate to significant perseveration at the sentence and narrative level as she speaks at length about a detail rather than addressing the topic. Pt benefits from cues to improve her receptive understanding of higher level information, her ability to use abstraction and inferencing, and to better organize her expressive communication at the sentence and narrative levels. Pt would benefit from more comprehensive cognitive/linguistic testing and skilled ST intervention through the post acute phases of recovery. Pt stated that she wants to go home. Pt daughter and pt spouse are encouraging pt to agree to post acute rehab for skilled therapies. TOOL LATHE OPERATOR communicated findings with , RN and CM. Quality of Life: Patient Stated Goal of Speech-Language Therapy: Promote resumption of PLOF, support pt cognitive/linguistic functioning to improve overall receptive/expressive communication and executive functioning to maintain satisfactory quality of life. Assessment Speech Production: Articulate Disorganized Resistive Clinical Impression: Impaired Observations: Pt is articulate and attentive during structured communication, with adequate reciprocal interaction. No anomia or paraphasia evident in expressive language, pt is mildly dysarthric but intelligible (this is her baseline). Pt exhibits moderate deficits in executive functioning, for orientation to time, ability to understand complex information, higher level abstraction, awareness of current limitations and need for continued therapy, and ability to shift or maintain topics at the conversation level (d/t perseverations). Pt would benefit from specialized TOOL LATHE OPERATOR intervention at the post acute level, along with PT and OT, to improve executive functioning and receptive/expressive communication. Informal Voice Assessment: Voice Loudness: Normal Mildly Loud Voice Nasal Resonance: Normal Voice Oral Resonance: Normal Voice Phonatory-based Quality: Normal Voice Pitch: Normal Voice Other Observations: Clinical Impression: Intact Clinicial Observations: Tests of Speech & Lang Adults: BDAE Clinical Impression: Impaired Observations: Moderate auditory comprehension deficits d/t reduced understanding of more complex information (i.e. disease process, significance of current limitations) Moderate to significant expository speech difficulties d/t perseveration on details vs. identifying context Moderate semantic difficulties characterized by extraneous use of state of being descriptors and exaggerated gestural behaviors Mild dysarthria (at basline) Tests of Cognition: Clinical Impression: Observations: Augmentative and Alternative Communication: Observations: Impressions and Recommendations Summary: Impact on Daily Function/Activity Limitations: Daily Activities: Moderate Interpersonal Interactions: Moderate Education: Employment: Community: Moderate Prognosis for Improvement: Good Comment: Recommendation for Speech Therapy: Speech Therapy through Rehab Facility Patient Education: Completed: Patient/Caregiver Education: Described Results of Evaluation Family/Caregivers expressed agreement with goals and treatment plan Comments/Barriers to Learning: Branch Director Clinican/Clinical Fellow: No Supervisory Statement: N/A Speech Language Pathologist: Naomy Phelps M.S., [facility]-TOOL LATHE OPERATOR
--- NOTE | 2024-12-08 15:11 | MHC.CM.PN ---
Patient will dc to [facility] tomorrow at noon via [facility]. CM & RN spent extended time with Patient, , and Daughter, discussing dc planning.Last IMM was addressed on 12/07/2024. CM will follow further as needed.
[2024-12-08] MEDS: Enoxaparin Sodium 40 MG/0.4 ML SYRINGE SUBCUT (17:23)
[2024-12-09 03:54] VITALS: BP 130/63; PULSE 68; RESP 20; TEMP 36.6; O2SAT 96
[2024-12-09] MEDS: Levothyroxine Sodium 112 MCG TABLET PO (06:40)
[2024-12-09 07:29] VITALS: BP 129/62; PULSE 70; RESP 18; TEMP 36.3; O2SAT 97
[2024-12-09] MEDS: Multivitamin TABLET 1 TAB PO (08:43)
[2024-12-09] MEDS: Atorvastatin Calcium 40 MG TABLET PO (08:43)
[2024-12-09] MEDS: Aspirin Enteric Coated 81 MG TABLET.DR PO (08:43)
[2024-12-09] MEDS: Clopidogrel Bisulfate 75 MG TABLET PO (08:43)
[2024-12-09] MEDS: 0.9 % Sodium Chloride Flush 3 ML SYRINGE IVFLUSH (08:43)
--- NOTE | 2024-12-09 09:46 | P.DS_ITS ---
DS: Providers Provider Date of Service: 12/09/24 Date of admission: 12/06/24 17:25 Date of discharge: 12/09/24 Primary care physician: Selena Farmer MD Consults: 12/06/24 17:28 Consult to Neurology Routine Consulting Provider: [facility] Reason for consultation: ?TIA vs CVA 12/08/24 18:30 Consult to Cardiology Routine Consulting Provider: [facility] Reason for consultation: moderate-severe DS: Diagnosis Discharge Diagnosis (1) Acute CVA (cerebrovascular accident): Status: Acute (2) Severe aortic stenosis: Status: Acute DS: Summary Hospital Course Hospital Course: From the history and physical by the admitting hospitalist, ASIYA Fox, 12/06/24: Pt is an 84-year-old female with a PMH significant for?HTN, HLD, hypothyroidism, and hx of CVA with residual right eye blindness who presents to the ED for evaluation of sudden onset difficulty speaking and left-sided weakn ess since this afternoon. Pt reports was in her normal state of health until 14:00 when she noticed that she was having difficulty grasping items with her left hand and found that she was speaking ?gibberish?. Possibly also was experiencing difficulties with depth perception. Family is at bedside and state pt was slurring her words and speaking incoherently which prompted called EMS. Symptoms lasted for approximately 30-60 minutes before improving. Currently pt reports is at or near baseline with left upper extremity, though family notes her speaking is not quite back to baseline. Denies headache, lightheadedness, dizziness. No facial droop noted. Denies difficulty breathing or shortness a breath. No chest pain/pressure, palpitations. Denies fever, chills, nausea, vomiting, abdominal pain. Of note, pt pt and apparently fell at home a few months ago shortly after Thanksgiving. Neither sought medical treatment or evaluation. Since that time pt has been chronically in a wheelchair. Denies any musculoskeletal pain. In the ED pt was hypertensive up to 159/75, vitals otherwise stable. Labs were grossly unremarkable and around baseline for pt. No leukocytosis. Stable H&H. No significant electrolyte abnormalities. Renal function WNL. Lipid panel WNL. Troponin negative. CT?of head negative for acute intracranial abnormalities. CTA of head and neck showed 63% stenosis of right internal carotid artery and 54% stenosis of left internal carotid artery. EKG demonstrated sinus rhythm with PACs. Pt was treated with aspirin. Pt will be admitted to the hospital for treatment and further evaluation of dysarthria and left-sided weakness concerning for TIA versus CVA. She was admitted to the telemetry unit. MRI confirmed multifocal acute right parietal ischemia. She was seen by Neurology and DAPT with aspirin plus clopidogrel was started. Medical management of carotid stenosis was recommended. No atrial fibrillation on telemetry [she did have atrial tachycardia, which is not a prothrombotic condition]. Echocardiogram showed moderate-severe aortic stenosis and Cardiology was consulted; she will follow up with [facility] as [facility]. She had persistent left hand weakness and speech difficulties. She was seen by PT, OT, and [employer]OR [employer] and acute inpatient rehabilitation was recommended. Antihypertensives [valsartan plus amlodipine] were held to allow permissive hypertension; valsartan was resumed upon discharge and amlodipine may be added back if needed to achieve BP goals. Time Attestation Discharge Coordination Time (in mins): 45 Quality: Safe Use of Opioids Does Pt have an Active Cancer Diagnosis on the Problem List?: No Quality: Stroke Does the patient have a stroke diagnosis?: No Physical Exam Vital Signs: Vital Signs: Last Vital Signs Temp 97.4 F 12/09/24 07:29 Pulse 70 12/09/24 07:29 Resp 18 12/09/24 07:29 BP 129/62 12/09/24 07:29 Pulse Ox 97 12/09/24 07:29 O2 Del Method Room Air 12/09/24 07:29 BMI result Body Mass Index 32.6 Gen: in no acute distress HEENT: sclera anicteric, moist mucus membranes Neck: supple Lungs: clear to auscultation bilaterally Heart: regular rate and rhythm, 2/6 systolic murmur at base Abd: soft, non-tender, non-distended Ext: no edema Skin: warm/well-perfused Neuro: alert and oriented x3, 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3 % (0.0-0.4) 12/06/24 14:51 Neut % (Auto) 72.4 % (45-73) 12/06/24 14:51 Lymph % (Auto) 20.8 % (20-40) 12/06/24 14:51 [place] % (Auto) 4.7 % (2-11) 12/06/24 14:51 Eos % (Auto) 1.3 % (0-4) 12/06/24 14:51 Baso % (Auto) 0.5 % (0-2) 12/06/24 14:51 Lymph # (Auto) 1.7 X10*3/uL (1.2-4.9) 12/06/24 14:51 [place] # (Auto) 0.4 X10*3/uL (0.1-1.2) 12/06/24 14:51 Eos # (Auto) 0.1 X10*3/uL (0.0-0.4) 12/06/24 14:51 Baso # (Auto) 0.0 X10*3/uL (0.0-0.2) 12/06/24 14:51 Abs Immat Gran (auto) 0.02 X10*3/uL (0.00-0.03) 12/06/24 14:51 Absolute Neuts (auto) 5.8 x10*3/uL (2.0-8.3) 12/06/24 14:51 Absolute Nucleated RBC 0.000 X10*3/uL (0.0-0.012) 12/06/24 14:51 Nucleated RBC % (auto) 0.0 /100WBC (0.0-0.2) 12/06/24 14:51 PT 11.3 SEC (10.9-12.4) 12/06/24 14:51 Whole Blood PT 12.1 sec (11.1-13.5) 12/06/24 14:42 INR 1.0 (0.9-1.1) 12/06/24 14:51 Whole Blood INR 1.0 (0.9-1.1) 12/06/24 14:42 APTT 28.1 SEC (26.0-36.8) 12/06/24 14:51 Sodium 141 mmol/L (135-145) 12/06/24 14:51 Potassium 3.8 mmol/L (3.3-5.1) 12/06/24 14:51 Chloride 110 mmol/L (96-108) H 12/06/24 14:51 Carbon Dioxide 23 mmol/L (22-29) 12/06/24 14:51 Anion Gap 12 (12-20) 12/06/24 14:51 BUN 19 mg/dL (9-16) H 12/06/24 14:51 Creatinine 0.83 mg/dL (0.5-1.4) 12/06/24 14:51 Estim Creat Clear Calc 64.9 12/06/24 14:51 Estimated GFR > 60 12/06/24 14:51 POC Glucose 117 mg/dL (60-115) H 12/06/24 21:28 Random Glucose 135 mg/dL (60-115) H 12/06/24 14:51 Estimat Average Glucose 114 mg/dL 12/06/24 14:51 Hemoglobin A1c % 5.6 % (<6.0) 12/06/24 14:51 Calcium 8.9 mg/dL (8.4-10.2) 12/06/24 14:51 Troponin I High Sens < 2.7 ng/L (<3.5-17.0) 12/06/24 14:51 Triglycerides 95 mg/dL (<150) 12/06/24 14:51 Cholesterol 160 mg/dL (<200) 12/06/24 14:51 LDL Cholesterol, Calc 78 mg/dL (<100) 12/06/24 14:51 HDL Cholesterol 63 mg/dL (>40) 12/06/24 14:51 TTE 12/08/24 - Normal left ventricular cavity size. There is mildly increased left ventricular wall thickness. The left ventricular systolic function is hyperdynamic. The visually estimated ejection fraction is >70%. - Normal right ventricular cavity size and systolic function. - There is moderate to severe aortic valve stenosis. DI 0.23. - The aortic valve area is 0.96 cm2. MRI brain 12/07/24 Multifocal acute right parietal ischemia. CT Head 12/06/24 No acute intracranial findings. CTA head/neck 12/06/24 Significant stenosis of the right internal carotid artery, 63%. Significant stenosis of the left internal carotid artery, 54%. No aneurysm or occlusion. Discharge Plan Discharge Anticipated Discharge Date/Time: 12/09/24 12:43 Patient Disposition: Xfer Inpatient Rehab Fac Discharge Diagnosis: acute stroke aortic stenosis Referrals: [facility] [Outside] - 1 Week Selena Farmer MD [Primary Care Provider] - 1 Week Wu Chau MD [Physician] - 1 Month Discharge Medications: New clopidogrel 75 mg Tablet 75 mg PO DAILY Qty: 30 0RF aspirin 81 mg Tablet,Delayed Release (Dr/Ec) 81 mg PO DAILY Qty: 30 0RF Continued atorvastatin 40 mg tablet 40 mg PO DAILY levothyroxine 112 mcg tablet 112 mcg PO DAILY@0600 valsartan 160 mg tablet 320 mg PO DAILY multivitamin Tablet 1 tab PO DAILY Held amlodipine 5 mg tablet 5 mg PO DAILY Hold Instructions: Resume on 12/16/24. Discharge Orders: Discharge Order (Routine); Ordered 12/09/24 Ordered By: Lorene Starkey Diet: Low salt diet Activity on Discharge: As tolerated Stand Alone Forms: Patient Portal Discharge page Print Language: Romanian Care Plan Goals: stroke recovery and prevention address aortic stenosis Health Concerns: acute stroke aortic stenosis Plan of Treatment: [facility] for acute inpatient rehabilitation take aspirin 81 mg PLUS clopidogrel 75 mg to prevent strokes; also take char rvastatin 40 mg daily Mediterranean diet avoid alcohol resume valsartan; hold amlodipine for now and add back if needed for BP control in 1 week follow up with Cardiology regarding aortic stenosis in 1 month Please follow up with your primary care doctor within 1 week of discharge from rehabilitation. Return to the hospital if you experience recurrent or worsening symptoms.] Assessment: See Discharge Summary. Patient Instructions: Stroke (DC), Aortic Valve Replacement (GEN), Mediterranean Diet (DC)
--- NOTE | 2024-12-09 09:46 | MHC.CM.PN ---
CM was able to provide [facility] with Patient's SS#- [id number].
[2024-12-09 11:13] VITALS: BP 126/60; PULSE 72; RESP 20; TEMP 36.4; O2SAT 96
--- NOTE | 2024-12-09 11:59 | MHC.SPEECHCO ---
Pt prepared for discharge to Acute Rehab. [employer] meets with her, she has no complaints, no requests at this time. She believes she is going home. When asked if nurses will be visiting her, she states that her neighbor is a nurse. Pt confused, not aware of her deficits.
== END 2024-12-09 12:12 | DRG 65 ==
LOC: HO.ED 16:22 → HO.EDOVER 17:36 → HO.IMC 20:39
PROVIDERS: Admitting Provider Student in an Organized Health Care Education/Training Program; Emergency Provider Emergency Medicine; PCP Family Medicine; Visit Provider Family Medicine
DX: I63.9 Cerebral infarction, unspecified (principal); G81.94 Hemiplegia, unspecified affecting left nondominant side; I47.19 Other supraventricular tachycardia; I35.0 Nonrheumatic aortic (valve) stenosis; R47.1 Dysarthria and anarthria; E03.9 Hypothyroidism, unspecified; I10 Essential (primary) hypertension; R29.810 Facial weakness; R47.81 Slurred speech; I65.23 Occlusion and stenosis of bilateral carotid arteries; R29.700 NIHSS score 0; E78.5 Hyperlipidemia, unspecified; I69.398 Other sequelae of cerebral infarction; H54.61 Unqualified visual loss, right eye, normal vision left eye; Z79.890 Hormone replacement therapy; Z79.899 Other long term (current) drug therapy
CPT/HCPCS: 36415; 70450; 70496; 70498; 70551; 80048; 80061; 82947; 83036; 84484; 85025; 85610; 85730; 93005; 93306; 96125; 97162; 97166; 99285; J1650; Q9957; Q9967

== ENCOUNTER → 2024-12-06 14:23 | Outpatient (BNV) | payer MEDICARE, SELFPAY | PROVIDERS: Admitting Provider Student in an Organized Health Care Education/Training Program; Emergency Provider Emergency Medicine; PCP Family Medicine; Visit Provider Internal Medicine | DX: R94.31 Abnormal electrocardiogram [ECG] [EKG] (principal) | CPT/HCPCS: 93010 ==

== ENCOUNTER → 2024-12-06 14:23 | Outpatient (BNV) | payer SELFPAY | PROVIDERS: Emergency Provider Emergency Medicine; Visit Provider Radiology Diagnostic Radiology | DX: I63.9 Cerebral infarction, unspecified (principal); I65.23 Occlusion and stenosis of bilateral carotid arteries | CPT/HCPCS: 70450; 70496 ==

== ENCOUNTER 2024-12-06 17:25 | Outpatient (BNV) | payer MEDICARE, SELFPAY | END 2024-12-08 07:00 | PROVIDERS: Admitting Provider Student in an Organized Health Care Education/Training Program; Emergency Provider Emergency Medicine; PCP Family Medicine; Visit Provider Internal Medicine Cardiovascular Disease | DX: I35.0 Nonrheumatic aortic (valve) stenosis (principal); I35.8 Other nonrheumatic aortic valve disorders | CPT/HCPCS: 93306 ==

== ENCOUNTER 2024-12-06 17:25 | Outpatient (BNV) | payer MEDICARE, SELFPAY | END 2024-12-07 08:00 | PROVIDERS: Admitting Provider Student in an Organized Health Care Education/Training Program; Emergency Provider Emergency Medicine; PCP Family Medicine; Visit Provider Specialist | DX: I63.331 Cerebral infarction due to thrombosis of right posterior cerebral artery (principal) | CPT/HCPCS: 70551 ==

== ENCOUNTER → 2024-12-06 17:25 | Outpatient (BNV) | payer MEDICARE, SELFPAY | PROVIDERS: Admitting Provider Student in an Organized Health Care Education/Training Program; Emergency Provider Emergency Medicine; PCP Family Medicine; Visit Provider Student in an Organized Health Care Education/Training Program | DX: I63.9 Cerebral infarction, unspecified (principal); R47.1 Dysarthria and anarthria | CPT/HCPCS: 99223; 99232 ==

== ENCOUNTER → 2024-12-06 17:25 | Outpatient (BNV) | payer MEDICARE, SELFPAY | PROVIDERS: Admitting Provider Student in an Organized Health Care Education/Training Program; Emergency Provider Emergency Medicine; PCP Family Medicine; Visit Provider Psychiatry & Neurology Neurology | DX: I63.9 Cerebral infarction, unspecified (principal) | CPT/HCPCS: 99222 ==